=== PATIENT | female | born 1980 | race Caucasian/White ===

== ENCOUNTER 2021-11-03 17:45 | Emergency (ER) | payer MEDICAID ==
[~2021-11-03] VITALS: Ht 165.1 cm; Wt 63.6 kg
[~2021-11-03 17:45] MED LIST: DEC4T PO; HYDR-4383 PO
[2021-11-03 17:55] VITALS: BP 119/76
[2021-11-03] MEDS ORDERED: AMOX-115 PO (19:08)
[2021-11-03] MEDS ORDERED: HYDR-3965 PO (19:08)
[2021-11-03] MEDS ORDERED: NAPR-56 PO (19:08)
== END 2021-11-03 19:22 | disposition home or self-care (01) ==
LOC: ER 17:47
DX: S16.1XXA Strain of muscle, fascia and tendon at neck level, initial encounter (principal); S09.22XA Traumatic rupture of left ear drum, initial encounter; Y04.0XXA Assault by unarmed brawl or fight, initial encounter; Y93.89 Activity, other specified; Y92.89 Other specified places as the place of occurrence of the external cause; Y99.8 Other external cause status
CPT/HCPCS: 99283